=== PATIENT | female | born 2000 | race African-American/Black ===

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

== ENCOUNTER 2018-03-19 09:53 | Emergency (ER) | payer OTHER ==
[~2018-03-19] VITALS: Ht 167.6 cm; Wt 116.1 kg
[~2018-03-19 09:53] MED LIST: ALBU2.5V14 NEB; AZIT250T6 PO; DIPH-121 PO; GUAI-108 PO; HYDR453.3 TP; IBUP-1007 PO; NITR100C62 PO
[2018-03-19 10:08] VITALS: BP 133/75
[2018-03-19 10:56] LABS: INFLUENZA A PATIENT NEGATIVE (NEGATIVE); INFLUENZA B PATIENT NEGATIVE (NEGATIVE)
--- NOTE | 2018-03-19 10:57 | RAD ---
CHEST PA LATERAL CLINICAL INDICATION: COUGH, SORE THROAT COMPARISON: None FINDINGS: Heart is normal in size. Mild prominence of bilateral bronchovascular markings seen. No focal consolidation. No pneumothorax or pleural effusion. Visualized bony thorax within normal limits. IMPRESSION: Findings suggests bronchitis. Electronically signed by: Delfino Ospina DO (03/19/2018 10:53 AM) [facility]
[2018-03-19] MEDS ORDERED: BENZ100C PO (11:28)
[2018-03-19] MEDS ORDERED: VENTOLIN HFA18 GM INH (11:28)
[2018-03-19] MEDS ORDERED: AMOX875T PO (11:28)
[2018-03-19] MEDS ORDERED: PRED50TA PO (11:28)
--- NOTE | 2018-03-19 11:28 | PHYS DOC ---
Past Medical History Past Medical History: Asthma, Other Additional Past Medical Histor: Borderline diabetes Past Surgical History: No Surgical History Alcohol Use: None Drug Use: None Adult General Chief Complaint Chief Complaint: SORE THROAT HPI HPI Patient is a 18 year old female with history of asthma who presents today with a cough and sore throat for 3 days. Patient denies any fever. Review of Systems Review of Systems Constitutional: Denies fever or chills [] Eyes: Denies change in visual acuity, redness, or eye pain [] HENT: Reports sore throat. Denies nasal congestion Respiratory: Reports cough, denies shortness of breath [] Cardiovascular: No additional information not addressed in HPI [] GI: Denies abdominal pain, nausea, vomiting, bloody stools or diarrhea [] : Denies dysuria or hematuria [] Musculoskeletal: Denies back pain or joint pain [] Integument: Denies rash or skin lesions [] Neurologic: Denies headache, focal weakness or sensory changes [] All other systems were reviewed and found to be within normal limits, except as documented in this note. Allergies Allergies Allergies Coded Allergies Type Severity Reaction Last Updated Verified No Known Drug Allergies 08/11/17 No Physical Exam Physical Exam Constitutional: Well developed, well nourished, no acute distress, non-toxic appearance. [] HENT: Normocephalic, atraumatic, bilateral external ears normal, oropharynx moist, no oral exudates, nose normal. [ posterior pharynx with mild erythema. +2 anterior cervical adenopathy. Eyes: PERRLA, EOMI, conjunctiva normal, no discharge. [] Neck: Normal range of motion, no tenderness, supple, no stridor. [] Cardiovascular:Heart rate regular rhythm, no murmur [] Lungs & Thorax: Bilateral breath sounds clear to auscultation [] Abdomen: Bowel sounds normal, soft, no tenderness, no masses, no pulsatile masses. [] Skin: Warm, dry, no erythema, no rash. [] Back: No tenderness, no CVA tenderness. [] Extremities: No tenderness, no cyanosis, no clubbing, ROM intact, no edema. [] Neurologic: Alert and oriented X 3, normal motor function, normal sensory function, no focal deficits noted. [] Psychologic: Affect normal, judgement normal, mood normal. [] Current Patient Data Vital Signs Vital Signs Date Time Temp Pulse Resp B/P (MAP) Pulse Ox O2 Delivery O2 Flow Rate FiO2 03/19/18 10:08 98.0 76 16 133/75 (94) 97 Room Air 98.0 Lab Values Laboratory Tests Test 03/19/18 10:20 03/19/18 10:35 Influenza Type A Antigen Negative (NEGATIVE) Influenza Type B Antigen Negative (NEGATIVE) Group A Streptococcus Rapid Positive (NEGATIVE) EKG EKG [] Radiology/Procedures Radiology/Procedures []PROCEDURE: CHEST PA & LATERAL CHEST PA LATERAL CLINICAL INDICATION: COUGH, SORE THROAT COMPARISON: None FINDINGS: Heart is normal in size. Mild prominence of bilateral bronchovascular markings seen. No focal consolidation. No pneumothorax or pleural effusion. Visualized bony thorax within normal limits. IMPRESSION: Findings suggests bronchitis. Electronically signed by: Delfino Harry DO (03/19/2018 10:53 AM) [facility] DICTATED and SIGNED BY: DELFINO HARRY DO DATE: 03/19/18 1052 Course & Med Decision Making Course & Med Decision Making Pertinent Labs and Imaging studies reviewed. (See chart for details) This is a 18-year-old female patient presented to the ED today with complaints of sore throat and a cough for 3 days. Chest x-ray was noted for bronchitis. Positive rapid strep. Discharged with amoxicillin for 10 days, albuterol inhaler , Tessalon Perles and prednisone for 5 days. Saltwater gargles recommended. Tylenol Motrin for pain or fever. Staff Physician Addendum: I was working in the ER during the course of this patient's visit. I was available for consultation as needed, but I was not directly involved in the care of this patient. Dragon Disclaimer Dragon Disclaimer This electronic medical record was generated, in whole or in part, using a voice recognition dictation system. Departure Departure Impression: Primary Impression: Acute bronchitis Additional Impression: Acute streptococcal pharyngitis Disposition: HOME, SELF-CARE Condition: STABLE Referrals: UNKNOWN PCP NAME (PCP) Follow-up with your doctor in 1-2 weeks Patient Instructions: Acute Bronchitis, Strep Throat Additional Instructions: You were evaluated in the emergency room and noted to have acute bronchitis and streptococcal pharyngitis. We put you on antibiotics. Take them as prescribed until completed. Take the rest of the medications as ordered. Come back to the ED at any point symptoms worsen. Scripts Albuterol Sulfate (VENTOLIN HFA INHALER) 18 Gm Hfa.aer.ad 2 PUFF INH Q4HRS for FOR ASTHMA, #1 INHALER 0 Refills Prov: NIDIA PIZANO APRN 03/19/18 Amoxicillin (AMOXICILLIN) 875 Mg Tablet 1 TAB PO BID, #20 TAB Prov: NIDIA PIZANO APRN 03/19/18 Benzonatate (TESSALON PERLE) 100 Mg Capsule 1 CAP PO TID, #30 CAP Prov: NIDIA PIZANO APRN 03/19/18 Prednisone (PREDNISONE) 50 Mg Tablet 1 TAB PO DAILY, #5 TAB Prov: NIDIA PIZANO APRN 03/19/18 Problem Qualifiers Primary Impression: Acute bronchitis Bronchitis organism: unspecified organism Qualified Codes: J20.9 - Acute bronchitis, unspecified NIDIA PIZANO APRN Mar 19, 2018 11:28 CALEB FORBES MD Mar 19, 2018 11:43
== END 2018-03-19 11:42 | disposition home or self-care (01) ==
LOC: ER 09:53
DX: J20.9 Acute bronchitis, unspecified (principal); J02.0 Streptococcal pharyngitis; J45.909 Unspecified asthma, uncomplicated
CPT/HCPCS: 71046; 87804; 87880; 99284

== ENCOUNTER → 2019-10-03 | Outpatient (CLI) | payer OTHER ==
[~2019-10-03] MED LIST changes: +ALBU2.5V8 IH; +AMOX875T PO; +BENZ100C PO; +PRED20TA PO; +PRED50TA PO; +VENTOLIN HFA18 GM INH
[2019-10-03 12:04] LABS: ALBUMIN 3.3 g/dL (3.4-5.0); ALBUMIN/GLOBULIN RATIO 0.8 (1.0-1.7); CALCIUM 8.9 mg/dL (8.5-10.1); CREATININE 0.9 mg/dL (0.6-1.0); GFR 95.6; POTASSIUM 3.8 mmol/L (3.5-5.1); TOTAL BILIRUBIN 0.4 mg/dL (0.2-1.0); TOTAL PROTEIN 7.6 g/dL (6.4-8.2)
[2019-10-03 12:06] LABS: CHOLESTEROL/HDL RATIO 4.6
[2019-10-03 23:09] LABS: FSH 5.4 mIU/mL (.); LUTEINIZING HORMONE 8.5 mIU/mL (.); THYROXINE 7.7 ug/dL (4.5-12.0)
== END | disposition home or self-care (01) ==
LOC: LAB 11:24
PROVIDERS: ATTEND Family Medicine
DX: N83.209 Unspecified ovarian cyst, unspecified side (principal); N91.2 Amenorrhea, unspecified
CPT/HCPCS: 36415; 80053; 80061; 83001; 83002; 83036; 84436; 84443

== ENCOUNTER 2019-11-15 16:02 | Emergency (ER) | payer SELFPAY ==
[~2019-11-15] VITALS: Ht 167.6 cm; Wt 130.6 kg
[~2019-11-15 16:02] MED LIST changes: -ALBU2.5V8 IH; -PRED20TA PO
[2019-11-15 17:20] VITALS: BP 147/90
[2019-11-15] MEDS ORDERED: PRED20TA PO (17:31)
[2019-11-15] MEDS ORDERED: ALBU2.5V8 IH (17:31)
--- NOTE | 2019-11-15 17:32 | PHYS DOC ---
Past Medical History Past Medical History: Asthma, Other Additional Past Medical Histor: Borderline diabetes Past Surgical History: No Surgical History Smoking Status: Never Smoker Alcohol Use: None Drug Use: None General Adult EDM: Chief Complaint: ASTHMA HPI: HPI: Patient is a 19 year old female presents with a chief complaint of cough congestion and wheezing. Patient has a history of asthma and symptoms feel similar to her asthma. Patient has some mild pleuritic pain associated with this. Patient denies any fever or known COVID-19 contacts. Patient states her inhaler is not working. Review of Systems: Review of Systems: Constitutional: Denies fever or chills. [] Eyes: Denies change in visual acuity. [] HENT: Complains of some congestion Respiratory: Complains of cough and mild shortness of breath Cardiovascular: Complains of mild chest pain with coughing GI: Denies abdominal pain, nausea, vomiting, bloody stools or diarrhea. [] : Denies dysuria. [] Musculoskeletal: Denies back pain or joint pain. [] Integument: Denies rash. [] Neurologic: Denies headache, focal weakness or sensory changes. [] Endocrine: Denies polyuria or polydipsia. [] Lymphatic: Denies swollen glands. [] Psychiatric: Denies depression or anxiety. [] Heart Score: Risk Factors: Risk Factors: DM, Current or recent (<one month) smoker, HTN, HLP, family history of CAD, obesity. Risk Scores: Score 0 - 3: 2.5% MACE over next 6 weeks - Discharge Home Score 4 - 6: 20.3% MACE over next 6 weeks - Admit for Clinical Observation Score 7 - 10: 72.7% MACE over next 6 weeks - Early Invasive Strategies Allergies: Allergies: Allergies Coded Allergies Type Severity Reaction Last Updated Verified No Known Drug Allergies 08/11/17 No Physical Exam: PE: Constitutional: Well developed, well nourished, no acute distress, non-toxic appearance. [] HENT: Normocephalic, atraumatic, bilateral external ears normal, no trismus, nose normal. [] Eyes: PERRLA, EOMI, conjunctiva normal, no discharge. [] Neck: Normal range of motion, no tenderness, supple, no stridor. [] Cardiovascular:Heart rate regular rhythm, peripheral pulses intact, cap refill brisk Lungs & Thorax: Mild expiratory wheeze Abdomen: Nontender nondistended Skin: Warm, dry, no erythema, no rash. [] Back: No tenderness, no CVA tenderness. [] Extremities: No tenderness, no cyanosis, no clubbing, ROM intact, no edema. [] Neurologic: Alert and oriented X 3, normal motor function, normal sensory function, no focal deficits noted. [] Psychologic: Affect normal, judgement normal, mood normal. [] Current Patient Data: Vital Signs: Vital Signs Date Time Temp Pulse Resp B/P (MAP) Pulse Ox O2 Delivery O2 Flow Rate FiO2 11/15/19 17:09 98.0 72 20 147/90 (109) 98 Room Air 98.0 EKG: EKG: [] Radiology/Procedures: Radiology/Procedures: [] Course & Med Decision Making: Course & Med Decision Making Pertinent Labs and Imaging studies reviewed. (See chart for details) [] 19-year-old history of asthma has a mild asthma exacerbation. Patient no respiratory distress. Patient has no known COVID-19 contacts and no fever.. Patient was treated with steroids and prescription for inhaler. Return precautions given. [employer] Disclaimer: [employer] Disclaimer: This electronic medical record was generated, in whole or in part, using a voice recognition dictation system. Departure Departure Impression: Primary Impression: Acute asthma exacerbation Disposition: 01 HOME, SELF-CARE Condition: STABLE Referrals: AWILDA COSTELLO MD (PCP) 2-3 days Patient Instructions: Asthma, Adult Additional Instructions: EMERGENCY DEPARTMENT GENERAL DISCHARGE INSTRUCTIONS THANK YOU for coming to [facility] Emergency Department (ED) today and trusting us with your care. We trust that you had a positive experience in our Emergency Department. If you wish to speak to the department Management you can contact the produce department supervisor at . YOUR FOLLOW UP INSTRUCTIONS ARE FOLLOWS: Do you have a private doctor? If you do not have a private doctor, please ask for a resource list of physicians or clinics that may be able to assist you with follow up care. The Emergency Physician has interpreted your x-rays. The X-ray specialist will also review them. If there is a change in the findings you will be notified in 48 hours when at all possible. A lab test or lab culture may have been done, your results will be reviewed and you will be notified if you need a change in treatment. ADDITIONAL INSTRUCTIONS AND INFORMATION Your care today has been supervised by a physician who is specially trained in emergency care. Many problems require more than one evaluation for a complete diagnosis and treatment. We recommend that you schedule your follow up appointment as recommended to ensure complete treatment of your illness or injury. If you are unable to obtain follow up care and continue to have a problem, or if your condition worsens we recommend that you return to the ED. We are not able to safely determine your condition over the phone nor are we able to give sound medical advice over the phone. For these safety reasons, if you call for medical advice we will ask you to come to the ED for further evaluation If you have any questions regarding these discharge instructions please call the ED at . SAFETY INFORMATION In the interest of safety, wellness, and injury prevention; we encourage you to wear your seatbelt, if you smoke; quit smoking, and we encourage your family to use protective helmet for bicycling and other sporting events that present an increased risk for head injury. IF YOUR SYMPTOMS WORSEN OR NEW SYMPTOMS DEVELOP, OR YOU HAVE CONCERNS ABOUT YOUR CONDITION; OR IF YOUR CONDITION WORSENS WHILE YOU ARE WAITING FOR YOUR FOLLOW UP APPOINTMENT; EITHER CONTACT YOUR PRIMARY CARE DOCTOR, THE PHYSICIAN WHOSE NAME AND NUMBER YOU WERE GIVEN, OR RETURN TO THE ED IMMEDIATELY. Scripts Prednisone (PREDNISONE) 20 Mg Tablet 3 TAB PO DAILY, #15 TAB Prov: DENISHA TRIPATHI MD 11/15/19 Albuterol Sulfate (PROAIR HFA INHALER) 8.5 Gm Hfa.aer.ad 2 PUFF IH PRN Q4-6HRS PRN for wheezing, #1 INHALER 0 Refills Prov: DENISHA TRIPATHI MD 11/15/19 Justicifation of Admission Dx: Justifications for Admission: Justification of Admission Dx: N/A DENISHA TRIPATHI MD Nov 15, 2019 17:32
== END 2019-11-15 17:41 | disposition home or self-care (01) ==
LOC: ER 16:02
DX: J45.901 Unspecified asthma with (acute) exacerbation (principal)
CPT/HCPCS: 99283

== ENCOUNTER 2020-03-12 12:44 | Emergency (ER) | payer SELFPAY ==
[~2020-03-12] VITALS: Ht 167.6 cm; Wt 120.4 kg
[~2020-03-12 12:44] MED LIST changes: +ALBU2.5V8 IH; +ALBU2.5V8 INH; +METH4TAB2 PO; +PRED20TA PO
[2020-03-12 13:24] VITALS: BP 141/88
[2020-03-12] MEDS ORDERED: PRED20TA PO (13:45)
[2020-03-12] MEDS ORDERED: DEXAMETHASONE 4 MG TABLET PO ONE (13:45)
--- NOTE | 2020-03-12 13:45 | PHYS DOC ---
Past Medical History Past Medical History: Asthma Additional Past Medical Histor: Borderline diabetes Past Surgical History: No Surgical History Smoking Status: Never Smoker Alcohol Use: Occasionally Drug Use: None General Adult EDM: Chief Complaint: ALLERGIC REACTION HPI: HPI: Patient is a 20 year old female presents with report of pruritic rash to lower back and bilateral legs that started at 1100. 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 Patient reports she thought she was using artificial kiwi flavoring which she tasted. Patient does report allergy to kiwi. Patient reports some initial shortness of breath which is since resolved. Reports itching and shortness of breath improved after taking 25 mg of Benadryl. Patient reports she presents to the ER for evaluation given some continued rash and itching and concern for worsening of symptoms. Review of Systems: Review of Systems: Constitutional: Denies fever or chills Eyes: Denies redness or eye pain HENT: Denies nasal congestion or sore throat Respiratory: Denies cough; reports shortness of breath Cardiovascular: Denies chest pain or palpitations GI: Denies abdominal pain, nausea, or vomiting : Denies dysuria or hematuria Musculoskeletal: Denies back pain or joint pain Integument: Reports pruritic rash; denies erythema Neurologic: Denies headache, focal weakness or sensory changes Complete systems were reviewed and found to be within normal limits, except as documented in this note. Allergies: Allergies: Allergies Coded Allergies Type Severity Reaction Last Updated Verified No Known Drug Allergies 08/11/17 No Physical Exam: PE: Constitutional: Well developed, well nourished, no acute distress, non-toxic appearance HENT: Normocephalic, atraumatic, no stridor Eyes: Conjunctiva normal, no discharge Neck: Normal range of motion, no tenderness, supple Lungs & Thorax: No respiratory distress, equal chest rise and fall Skin: Warm, dry, pruritic raised rash to lumbar back consistent for urticaria Back: No midline tenderness, no CVA tenderness Extremities: No tenderness, ROM intact, no edema Neurologic: Alert and oriented X 3, no focal deficits noted Psychologic: Affect normal, judgment normal Current Patient Data: Vital Signs: Vital Signs Date Time Temp Pulse Resp B/P (MAP) Pulse Ox O2 Delivery O2 Flow Rate FiO2 03/12/20 13:24 98.6 84 18 141/88 (105) 97 Room Air 98.6 EKG: EKG: [] Radiology/Procedures: Radiology/Procedures: [] Course & Med Decision Making: Course & Med Decision Making Patient presents with pruritic rash which appears consistent for urticaria. Patient reports possible ingestion of kiwi for which patient has known allergy. No airway compromise noted. Patient previously had taken 25 mg of Benadryl prior to arrival with interval improvement of some of her symptoms. Oral steroid therefore provided. Patient stable for discharge with outpatient follow-up with PCP. Discussed findings and plan with patient, who acknowledges understanding and agreement. Dragon Disclaimer: Dragon Disclaimer: This electronic medical record was generated, in whole or in part, using a voice recognition dictation system. Departure Departure Impression: Primary Impression: Urticaria Additional Impression: Food allergy Disposition: 01 DC HOME SELF CARE/HOMELESS Condition: STABLE Referrals: AWILDA COSTELLO MD (PCP) Patient Instructions: Food Allergy, [id number], Hives, [id number] Additional Instructions: Take over the counter Benadryl 25mg every 4-6 hours as needed for hives. Scripts Prednisone (PREDNISONE) 20 Mg Tablet 2 TAB PO DAILY, #8 TAB Start this prescription tomorrow, 03/13/20 Prov: ISRAEL BLANCAS DO 03/12/20 ISRAEL BLANCAS DO Mar 12, 2020 13:45
== END 2020-03-12 14:27 | disposition home or self-care (01) ==
LOC: ER 12:44
DX: L50.0 Allergic urticaria (principal); J45.909 Unspecified asthma, uncomplicated; Z91.018 Allergy to other foods
CPT/HCPCS: 99283

== ENCOUNTER 2020-08-05 21:19 | Emergency (ER) | payer SELFPAY ==
[~2020-08-05] VITALS: Ht 167.6 cm; Wt 110.0 kg
[2020-08-05] MEDS ORDERED: methylPREDNISolone SOD SUCC PF 125 MG/2 ML VIAL. IV ONE (21:45)
[2020-08-05] MEDS ORDERED: IV NORMAL SALINE 1000ML BAG 1,000 ML IV ONE ×2 (21:45→23:45)
[2020-08-05] MEDS ORDERED: IPRATRPIUM/ALBUTEROL 0.5/2.5MG 3 ML NEBU. NEB ONE ×2 (21:45)
--- NOTE | 2020-08-05 21:45 | ED.ADGEN ---
Past Medical History Past Medical History: Asthma Additional Past Medical Histor: Borderline diabetes Past Surgical History: No Surgical History Smoking Status: Never Smoker Alcohol Use: Occasionally Drug Use: None General Adult EDM: Chief Complaint: MULTIPLE COMPLAINTS HPI: HPI: Patient is a 20 year old female with productive cough, shortness of breath, rhinorrhea and congestion, low-grade fevers since yesterday. States her symptoms are worse today. States her asthma use her DuoNeb yesterday but is still feels like she is wheezing. Took Tylenol and Mucinex earlier today. No known sick contacts. Is not had her Covid vaccines yet. Denies any GI complaints. Review of Systems: Review of Systems: All other systems within normal limits except for as noted in the HPI Current Medications: Current Medications Medications (Trade) Dose Ordered Sig/Alberto Start Time Stop Time Status Last Admin Dose Admin Albuterol/ Ipratropium (Duoneb) 3 ml 1X ONCE 08/05/20 21:45 08/05/20 21:46 DC 08/05/20 22:40 3 ML Ceftriaxone Sodium (Rocephin) 1 gm 1X ONCE 08/06/20 00:45 08/06/20 00:50 DC 08/06/20 01:12 1 GM Info (CONTRAST GIVEN -- Rx MONITORING) 1 each PRN DAILY PRN 08/06/20 00:30 08/08/20 00:29 Iohexol (Omnipaque 350 Mg/ml) 100 ml 1X ONCE 08/06/20 00:30 08/06/20 00:31 DC 08/06/20 00:36 100 ML Methylprednisolone Sodium Succinate (SOLU-Medrol 125MG VIAL) 125 mg 1X ONCE 08/05/20 21:45 08/05/20 21:46 DC 08/05/20 22:16 125 MG Sodium Chloride 1,000 ml @ 1,000 mls/hr 1X ONCE 08/05/20 23:45 08/06/20 00:44 DC 08/06/20 00:33 1,000 MLS/HR Allergies: Allergies: Allergies Coded Allergies Type Severity Reaction Last Updated Verified No Known Drug Allergies 08/11/17 No Physical Exam: PE: Constitutional: Well developed, well nourished, no acute distress, non-toxic appearance. [] HENT: Normocephalic, atraumatic, bilateral external ears normal, nose normal. [] Eyes: PERRLA, conjunctiva normal, no discharge. [] Neck: No rigidity, supple, no stridor. [] Cardiovascular: Regular rate and rhythm, brisk cap refill [] Lungs & Thorax: Non labored symmetric respirations, no tachypnea or respiratory distress. Bilateral expiratory wheezes. [] Abdomen: Soft, nondistended. Skin: Warm, dry, no erythema, no rash. [] Back: Unremarkable Extremities: No deformities, range of motion grossly intact, no lower extremity edema [] Neurologic: Alert and oriented X 3, no focal deficits noted. [] Psychologic: Affect normal, judgement normal, mood normal. [] Current Patient Data: Labs: Laboratory Tests Test 08/05/20 22:00 08/05/20 23:05 08/05/20 23:45 08/05/20 23:50 White Blood Count 11.9 x10^3/uL (4.0-11.0) H Red Blood Count 4.40 x10^6/uL (3.50-5.40) Hemoglobin 13.5 g/dL (12.0-15.5) Hematocrit 39.9 % (36.0-47.0) Mean Corpuscular Volume 91 fL (79-100) Mean Corpuscular Hemoglobin 31 pg (25-35) Mean Corpuscular Hemoglobin Concent 34 g/dL (31-37) Red Cell Distribution Width 12.8 % (11.5-14.5) Platelet Count 278 x10^3/uL (140-400) Neutrophils (%) (Auto) 70 % (31-73) Lymphocytes (%) (Auto) 18 % (24-48) L Monocytes (%) (Auto) 7 % (0-9) Eosinophils (%) (Auto) 5 % (0-3) H Basophils (%) (Auto) 0 % (0-3) Neutrophils # (Auto) 8.4 x10^3/uL (1.8-7.7) H Lymphocytes # (Auto) 2.2 x10^3/uL (1.0-4.8) Monocytes # (Auto) 0.8 x10^3/uL (0.0-1.1) Eosinophils # (Auto) 0.5 x10^3/uL (0.0-0.7) Basophils # (Auto) 0.0 x10^3/uL (0.0-0.2) Sodium Level 139 mmol/L (136-145) Potassium Level 3.9 mmol/L (3.5-5.1) Chloride Level 104 mmol/L (98-107) Carbon Dioxide Level 24 mmol/L (21-32) Anion Gap 11 (6-14) Blood Urea Nitrogen 11 mg/dL (7-20) Creatinine 1.0 mg/dL (0.6-1.0) Estimated GFR (Cockcroft-Gault) 83.9 BUN/Creatinine Ratio 11 (6-20) Glucose Level 98 mg/dL (70-99) Calcium Level 8.9 mg/dL (8.5-10.1) Total Bilirubin 0.3 mg/dL (0.2-1.0) Aspartate Amino Transferase (AST) 18 U/L (15-37) Alanine Aminotransferase (ALT) 27 U/L (14-59) Alkaline Phosphatase 104 U/L (46-116) Troponin I Quantitative < 0.017 ng/mL (0.000-0.055) QT-Zpy-C-Type Natriuretic Peptide 18 pg/mL (0-124) Total Protein 7.2 g/dL (6.4-8.2) Albumin 3.2 g/dL (3.4-5.0) L Albumin/Globulin Ratio 0.8 (1.0-1.7) L D-Dimer (Rochelle) 0.48 ug/mlFEU (0.00-0.50) Urine Collection Type Unknown Urine Color Yellow Urine Clarity Clear Urine pH 7.5 (<5.0-8.0) Urine Specific [place] 1.025 (1.000-1.030) Urine Protein Negative mg/dL (NEG-TRACE) Urine Glucose (UA) Negative mg/dL (NEG) Urine Ketones (Stick) Negative mg/dL (NEG) Urine Blood Negative (NEG) Urine Nitrite Negative (NEG) Urine Bilirubin Negative (NEG) Urine Urobilinogen Dipstick 1.0 mg/dL (0.2 mg/dL) Urine Leukocyte Esterase Large (NEG) Urine RBC Occ /HPF (0-2) Urine WBC 20-40 /HPF (0-4) Urine Squamous Epithelial Cells Few /LPF Urine Bacteria Few /HPF (0-FEW) Urine Mucus Slight /LPF POC Urine HCG, Qualitative Hcg negative (Negative) Laboratory Tests 08/05/20 22:00 Laboratory Tests 08/05/20 22:00 Vital Signs: Vital Signs Date Time Temp Pulse Resp B/P (MAP) Pulse Ox O2 Delivery O2 Flow Rate FiO2 08/06/20 01:12 99 20 168/72 (104) 98 08/05/20 22:48 Aerosol Mask 10.0 08/05/20 21:56 99.5 99.5 EKG: EKG: Sinus tachycardia, heart rate 104 bpm, left axis deviation, no ST elevation or depression, no ectopy. [] Heart Score: C/O Chest Pain: No Risk Factors: Risk Factors: DM, Current or recent (<one month) smoker, HTN, HLP, family history of CAD, obesity. Risk Scores: Score 0 - 3: 2.5% MACE over next 6 weeks - Discharge Home Score 4 - 6: 20.3% MACE over next 6 weeks - Admit for Clinical Observation Score 7 - 10: 72.7% MACE over next 6 weeks - Early Invasive Strategies Radiology/Procedures: Radiology/Procedures: EXAM: CT chest with contrast - pulmonary embolus protocol CLINICAL HISTORY: Dyspnea COMPARISON: None. TECHNIQUE: CT of the chest following the administration of intravenous contrast during the pulmonary arterial phase. Axial, coronal and sagittal reformatted images were generated including MIP images. ---PQRS compliance statement - One or more of the following individualized dose reduction techniques were utilized for this study: 1. Automated exposure control 2. Adjustment of the mA and/or kV according to patient size 3. Use of iterative reconstruction technique--- FINDINGS: CHEST: Diagnostic quality: Suboptimal contrast bolus Pulmonary emboli: No pulmonary emboli to the level of the lobar branches. More peripheral vessels are not well assessed. Right heart strain: None Pulmonary arteries: Normal in caliber. Heart is not enlarged. No pericardial effusion. No pleural effusion or pneumothorax. No axillary lymphadenopathy. No mediastinal or hilar lymphadenopathy. Anterior mediastinal soft tissue density likely residual thymus. No suspicious lung nodule or mass is seen. No lobar consolidation. Visualized Upper abdomen: Trace hiatal hernia. Bones: Unremarkable IMPRESSION: Suboptimal contrast bolus. No pulmonary emboli to the level of the lobar branches. More peripheral vessels are not well assessed. [] Impression: Not mentioned in radiology report but I visualized small of infiltrate in right lung base. Course & Med Decision Making: Course & Med Decision Making Pertinent Labs and Imaging studies reviewed. (See chart for details) [] Dragon Disclaimer: Dragon Disclaimer: This electronic medical record was generated, in whole or in part, using a voice recognition dictation system. Departure Departure Impression: Primary Impression: Person under investigation for COVID-19 Additional Impressions: UTI (urinary tract infection) CAP (community acquired pneumonia) Disposition: 01 HOME / SELF CARE / HOMELESS Condition: STABLE Referrals: AWILDA COSTELLO MD (PCP) Patient Instructions: Pneumonia, Adult Additional Instructions: You have been tested for or diagnosed with COVID-19. It is an infection caused by a new type of coronavirus. COVID-19 will cause cold-like or mild flu symptoms in most. It can cause more severe symptoms like problems breathing in some. There is no treatment for COVID-19. The body will clear the infection over time. Self-care will help to ease discomfort. Steps to Take: Self-Care Rest as needed. Healthy habits may help you feel better. Steps include: Choose healthy foods including fruits and vegetables. Drink water throughout the day. Get plenty of sleep each night. If you smoke, try to quit. It may ease breathing. Avoid alcohol. Keep Others Healthy The virus can spread to others. Droplets are released every time you sneeze or cough. The droplets can get into the mouth, nose, or eyes of people near you and lead to infection. To lower the chances of spreading COVID-19 to others: Stay at home until your doctor has said it is safe to leave. If you tested positive this will mean staying isolated until both of the following are true: At least 7 days have passed since the start of illness. You are free of fever for at least 72 hours without the use of medicine. During this time: - Avoid public areas, events, or transportation. Do not return to work or school until your doctor has said it is safe to do so. - Call ahead if you need to go to a medical center. Let them know you may have COVID-19. It will help them guide you where to go. They may also ask you to wear a facemask when you come to the office. - If you call for emergency medical services, let them know you may have COVID- 19. While at home: - Try to avoid close contact with others. Stay about 6 feet away. - If possible, spend most of your time in a separate room from others. - Use a face mask if you will be in close contact with others such as sharing a room or vehicle. - Have someone wipe down common surfaces in the home. Use household personal computer network engineer every day on areas like doorknobs, counters, or sinks. - Cough or sneeze into a tissue. Throw the tissue away right after use. If a tissue is not available, cough or sneeze into your elbow. - Wash your hands often. Wash them after sneezing or coughing. Use soap and water and wash for at least 20 seconds. Alcohol based hand block cleaner can be used if soap and water is not available. - Do not prepare food for others. Avoid sharing personal items like forks, spoons, or toothbrushes. - Avoid close contact with pets while you are sick. There is no evidence of the virus passing to pets. This is a safety step until more is known about this virus. Isolation can be frustrating. Social interaction can help. Keep in touch with friends and family through phone and tech options. You can still interact with others in your home, just keep a safe distance of about 6 feet. Follow-up: Your doctors office will check in with you to see if there are any changes in your health. You may be asked to keep track of symptoms to share with them. They will also let you know when you are clear to be in public again. Problems to Look Out For: Contact your doctor if your recovery is not going as you expect. Get emergency care if you have problems such as: - Trouble breathing - Nonstop chest pain or pressure - Changes in awareness, confusion, or problems waking - Lips or face have bluish color - Worsening of symptoms If you think you have an emergency, call for emergency medical services right away. As taken from [facility] Amoxicillin/Potassium Clav (AUGMENTIN 875-125 TABLET) 1 Each Tablet 1 TAB PO Q12HR for antibiotic for 5 Days, #10 TAB Prov: MARY ZENDEJAS MD 08/06/20 Prednisone (PREDNISONE) 50 Mg Tablet 1 TAB PO DAILY for steroid for 5 Days, #5 TAB Prov: MARY ZENDEJAS MD 08/06/20 Ipratropium/Albuterol Sulfate (DUONEB 0.5-3(2.5) MG/3 ML) 3 Ml Ampul.neb 3 ML NEB QID PRN for WHEEZING for 10 Days, #40 EACH Prov: MARY ZENDEJAS MD 08/06/20 Problem Qualifiers MARY ZENDEJAS MD Aug 05, 2020 21:45
[2020-08-05 22:36] LABS: BASO % 0 % (0-3); EOS # 0.5 x10^3/uL (0.0-0.7); EOS % 5 % (0-3); HEMATOCRIT 39.9 % (36.0-47.0); HEMOGLOBIN 13.5 g/dL (12.0-15.5); LYMPH # 2.2 x10^3/uL (1.0-4.8); LYMPH % 18 % (24-48); MEAN CORPUSCULAR HEMOGLOBIN 31 pg (25-35); MEAN CORPUSCULAR HGB CONC 34 g/dL (31-37); MEAN CORPUSCULAR VOLUME 91 fL (79-100); MONO # 0.8 x10^3/uL (0.0-1.1); MONO % 7 % (0-9); NEUT # 8.4 x10^3/uL (1.8-7.7); NEUT % 70 % (31-73); PLATELET COUNT 278 x10^3/uL (140-400); RED CELL DISTRIBUTION WIDTH 12.8 % (11.5-14.5); WHITE BLOOD COUNT 11.9 x10^3/uL (4.0-11.0)
[2020-08-05 22:51] LABS: CALCIUM 8.9 mg/dL (8.5-10.1); GFR 83.9; POTASSIUM 3.9 mmol/L (3.5-5.1)
[2020-08-05 22:57] LABS: ALBUMIN 3.2 g/dL (3.4-5.0); ALBUMIN/GLOBULIN RATIO 0.8 (1.0-1.7); TOTAL BILIRUBIN 0.3 mg/dL (0.2-1.0); TOTAL PROTEIN 7.2 g/dL (6.4-8.2)
--- NOTE | 2020-08-05 23:09 | EKG ---
[facility] [address] [place] [address] Test Date: 2020-08-05 Test Time: 21:52:28 Pat Name: ILANA BERRIOS Department: Room: Gender: F Vehicle Sales Professional: : 2000 Requested By: MARY ZENDEJAS Order Number: [id number] Reading MD: Measurements Intervals [place] Rate: 104 P: 26 [place]: 134 QRS: -7 QRSD: 76 T: 16 QT: 338 QTc: 445 Interpretive Statements SINUS TACHYCARDIA LEFTWARD AXIS QRS(T) CONTOUR ABNORMALITY CONSISTENT WITH ANTERIOR MYOCARDIAL DAMAGE CONSISTENT WITH INFERIOR MYOCARDIAL DAMAGE ABNORMAL ECG RI6.01 No previous ECG available for comparison
[2020-08-05 23:56] LABS: BILIRUBIN,URINE NEGATIVE (NEG); CLARITY,URINE CLEAR; COLOR,URINE YELLOW; NITRITE,URINE NEGATIVE (NEG); PH,URINE 7.5 (<5.0-8.0); PROTEIN,URINE NEGATIVE (NEG-TRACE)
[2020-08-06 00:01] LABS: BACTERIA,URINE FEW /HPF (0-FEW); RBC,URINE OCC /HPF (0-2); WBC,URINE 20-40 /HPF (0-4)
[2020-08-06] MEDS ORDERED: CONTRAST GIVEN. MC PRN (00:30)
[2020-08-06] MEDS ORDERED: IOHEXOL 350 MG/ML 100 ML VIAL. IV ONE (00:30)
[2020-08-06] MEDS ORDERED: cefTRIAXone IV Push 1 GM VIAL. IVP ONE (00:45)
[2020-08-06] MEDS ORDERED: AMOX1TAB61 PO (01:02)
[2020-08-06] MEDS ORDERED: IPRA3AMP29 NEB (01:02)
[2020-08-06] MEDS ORDERED: PRED50TA PO (01:02)
--- NOTE | 2020-08-06 01:11 | RAD ---
EXAM: CT chest with contrast - pulmonary embolus protocol CLINICAL HISTORY: Dyspnea COMPARISON: None. TECHNIQUE: CT of the chest following the administration of intravenous contrast during the pulmonary arterial phase. Axial, coronal and sagittal reformatted images were generated including MIP images. ---PQRS compliance statement - One or more of the following individualized dose reduction techniques were utilized for this study: 1. Automated exposure control 2. Adjustment of the mA and/or kV according to patient size 3. Use of iterative reconstruction technique--- FINDINGS: CHEST: Diagnostic quality: Suboptimal contrast bolus Pulmonary emboli: No pulmonary emboli to the level of the lobar branches. More peripheral vessels ar e not well assessed. Right heart strain: None Pulmonary arteries: Normal in caliber. Heart is not enlarged. No pericardial effusion. No pleural effusion or pneumothorax. No axillary lymphadenopathy. No mediastinal or hilar lymphadenopathy. Anterior mediastinal soft tissue density likely residual thymus. No suspicious lung nodule or mass is seen. No lobar consolidation. Visualized Upper abdomen: Trace hiatal hernia. Bones: Unremarkable IMPRESSION: Suboptimal contrast bolus. No pulmonary emboli to the level of the lobar branches. More peripheral ve ssels are not well assessed. Electronically signed by: Zeke Mcclendon MD (08/06/2020 1:09 AM) ROSS
[2020-08-06 01:41] VITALS: BP 154/72
== END 2020-08-06 01:55 | disposition home or self-care (01) ==
LOC: ER 21:19
DX: J18.9 Pneumonia, unspecified organism (principal); Z20.822 Contact with and (suspected) exposure to COVID-19; N39.0 Urinary tract infection, site not specified; J45.909 Unspecified asthma, uncomplicated
CPT/HCPCS: 36415; 71275; 80053; 81001; 81025; 83880; 84484; 85025; 85379; 87086; 93005; 94640; 96361; 96374; 96375; 99285; J0696; J2930; J7030; Q9967; U0003; U0005

== ENCOUNTER 2020-10-25 06:26 | Emergency (ER) | payer SELFPAY ==
[~2020-10-25] VITALS: Ht 167.6 cm; Wt 120.5 kg
[~2020-10-25 06:26] MED LIST changes: +AMOX1TAB61 PO; +IPRA3AMP29 NEB
--- NOTE | 2020-10-25 06:53 | PHYS DOC ---
Past Medical History Past Medical History: Asthma Additional Past Medical Histor: Borderline diabetes Past Surgical History: No Surgical History Smoking Status: Never Smoker Alcohol Use: Occasionally Drug Use: None General Adult EDM: Chief Complaint: MULTIPLE COMPLAINTS HPI: HPI: 20-year-old female past medical history of asthma, borderline diabetes and obesity, presents to the ED with complaints of generalized weakness with multiple episodes of vomiting and diarrhea stating "I vomit everytime I cough and I have cottonmouth, I feel so weak." Tested positive for Covid 10/23, symptoms started 2 days before. Reports asthma is well controlled but needed her inhaler last night. No associated sore throat, chest pain or dyspnea. Works at a [employer]. Review of Systems: Review of Systems: Constitutional: Denies fever or chills. [] Eyes: Denies change in visual acuity. [] HENT: Denies nasal congestion or sore throat. [] Respiratory: Denies hemoptysis or shortness of breath. [] Cardiovascular: Denies chest pain or edema. [] GI: Denies melena or hematochezia : Denies dysuria or vaginal bleeding Musculoskeletal: Denies back pain or joint pain. [] Integument: Denies rash or diaphoresis Neurologic: Denies headache, focal weakness or sensory changes. [] Endocrine: Denies polyuria or polydipsia. [] Lymphatic: Denies swollen glands. [] Psychiatric: Denies depression or anxiety. [] Heart Score: C/O Chest Pain: No Risk Factors: Risk Factors: DM, Current or recent (<one month) smoker, HTN, HLP, family history of CAD, obesity. Risk Scores: Score 0 - 3: 2.5% MACE over next 6 weeks - Discharge Home Score 4 - 6: 20.3% MACE over next 6 weeks - Admit for Clinical Observation Score 7 - 10: 72.7% MACE over next 6 weeks - Early Invasive Strategies Allergies: Allergies: Allergies Coded Allergies Type Severity Reaction Last Updated Verified Penicillins Allergy Unknown 10/25/20 Yes Physical Exam: PE: Constitutional: Well developed, well nourished, no acute distress, non-toxic appearance. HENT: Normocephalic, atraumatic, dry mucous membranes Eyes: EOMI, conjunctiva normal, no discharge. Neck: Normal range of motion, supple, Cardiovascular: S1/2 present, regular rhythm-hr 96 Lungs & Thorax: Speaking in full sentences, bilateral equal chest rise, no tachypnea or increased work of breathing, witnessed dry cough Skin: Warm, dry, no erythema, no rash. [] Extremities: No tenderness, no cyanosis, no lower extremity edema Neurologic: Alert and oriented X 3, normal motor function, normal sensory function, no focal deficits noted. [] Psychologic: Affect normal, judgement normal, mood normal. [] Current Patient Data: Vital Signs: Vital Signs Date Time Temp Pulse Resp B/P (MAP) Pulse Ox O2 Delivery O2 Flow Rate FiO2 10/25/20 06:30 99.6 96 20 121/85 (99) 95 Room Air 99.6 EKG: EKG: [] Radiology/Procedures: Radiology/Procedures: []IMAGING REPORT Signed PATIENT: ILANA BERRIOS ACCOUNT: [id number] : 2000 LOCATION: ER AGE: 20 SEX: F EXAM STATUS: REG ER ORD. PHYSICIAN: PALAK HUBER DO REASON: covid + weakness PROCEDURE: CHEST AP ONLY XR CHEST 1V History: Reason: covid + weakness / Spl. Instructions: / History: Comparison: January 07, 2020 Findings: Mild ill-defined mid and bibasilar opacities. No pleural effusion. No pneumothor ax. Unchanged heart size. Impression: 1. Mild bilateral ill-defined opacities, can be seen with viral pneumonia. Electronically signed by: Moody Rahman DO (10/25/2020 7:33 AM) [id number] DICTATED and SIGNED BY: MOODY RAHMAN DO DATE: 10/25/20 [id number] 0 Course & Med Decision Making: Course & Med Decision Making Pertinent Labs and Imaging studies reviewed. (See chart for details) Concern for weakness, cough, vomiting and diarrhea in the setting of COVID-19 infection with chest x-ray showing viral pneumonia, day 4 symptoms. Pt afebrile, HD stable, requiring no respiratory support. No active vomiting in the ED. Electrolytes within normal limits. CK slightly elevated with normal renal function. Patient was treated with antiemetics, Pepcid and IV fluids in the ED. Will discharge home with Zofran ODT prescription and strict ED return precautions were given for chest pain, short dyspnea, hemoptysis, increased work of breathing or stroke symptoms. Encouraged urgent outpatient follow-up with PMD for routine care. Life-threatening processes were considered but are low suspicion at this time, given history, physical exam and ED workup. Pt was educated on all prescription medications and adverse effects. All patient's questions were answered and pt was stable at time of discharge. Life/limb-threatening differential includes but is not limited to, airway emergency or respiratory distress/ARDS or fatigue or head or neck swelling, toxidrome, sepsis/shock, angioedema, anaphylaxis, congestive heart failure, myocarditis, acute myocardial infarction, dysrhythmias, cardiomyopathy, venous thromboembolism, pulmonary emboli, acute necrotizing hemorrhagic encephalopathy ,cerebral venous thrombosis, meningitis, encephalitis or CVA. I have spoken with the patient and/or caregivers. I explained the patient's condition, diagnoses and treatment plan based on the information available to me at this time. I have answered the patient and/or caregiver's questions and addressed any concerns. The patient and/or caregivers have a good understanding of patient's diagnosis, condition and treatment plan as can be expected at this point. Vital signs have been stable. Patient's condition is stable and appropriate for discharge from the emergency department. Patient will pursue further outpatient evaluation with primary care physician or other designated or consulting physician as outlined in the discharge instructions. The patient and/or caregivers are agreeable to this plan of care and follow-up instructions have been explained in detail. The patient and/or caregivers have received these instructions in written form and have expressed an understanding of the discharge instructions. The patient and/or caregivers are aware that any significant change of condition or worsening of symptoms should prompt immediate return to this or the closest emergency department or call to 911. Donny Disclaimer: Donny Disclaimer: This electronic medical record was generated, in whole or in part, using a voice recognition dictation system. Departure Departure Impression: Primary Impression: COVID-19 Additional Impressions: Viral pneumonia Vomiting and diarrhea Disposition: HOME / SELF CARE / HOMELESS Condition: STABLE Referrals: AWILDA COSTELLO MD (PCP) for routine care within 1 week Patient Instructions: Upper Respiratory Infection, Adult Additional Instructions: Return to ED immediately if your oxygen level drops below 90% (purchase a pulse oximetry at a medical supply store), difficulties breathing including rapid breathing or increased work of breathing (skin sucking under ribs), chest pain or stroke-like symptoms (facial droop, speech changes, arm/leg weakness). You have been tested for or diagnosed with COVID-19. It is an infection caused by a new type of coronavirus. COVID-19 will cause cold-like or mild flu symptoms in most. It can cause more severe symptoms like problems breathing in some. There is no treatment for COVID-19. The body will clear the infection over time. Self-care will help to ease discomfort. Steps to Take: Self-Care Rest as needed. Healthy habits may help you feel better. Steps include: Choose healthy foods including fruits and vegetables. Drink water throughout the day. Get plenty of sleep each night. If you smoke, try to quit. It may ease breathing. Avoid alcohol. Keep Others Healthy The virus can spread to others. Droplets are released every time you sneeze or cough. The droplets can get into the mouth, nose, or eyes of people near you and lead to infection. To lower the chances of spreading COVID-19 to others: Stay at home until your doctor has said it is safe to leave. If you tested positive this will mean staying isolated until both of the following are true: At least 7 days have passed since the start of illness. You are free of fever for at least 72 hours without the use of medicine. During this time: - Avoid public areas, events, or transportation. Do not return to work or school until your doctor has said it is safe to do so. - Call ahead if you need to go to a medical center. Let them know you may have COVID-19. It will help them guide you where to go. They may also ask you to wear a facemask when you come to the office. - If you call for emergency medical services, let them know you may have COVID- 19. While at home: - Try to avoid close contact with others. Stay about 6 feet away. - If possible, spend most of your time in a separate room from others. - Use a face mask if you will be in close contact with others such as sharing a room or vehicle. - Have someone wipe down common surfaces in the home. Use household conveyor man every day on areas like doorknobs, counters, or sinks. - Cough or sneeze into a tissue. Throw the tissue away right after use. If a tissue is not available, cough or sneeze into your elbow. - Wash your hands often. Wash them after sneezing or coughing. Use soap and water and wash for at least 20 seconds. Alcohol based hand kitchen cleaner can be used if soap and water is not available. - Do not prepare food for others. Avoid sharing personal items like forks, spoons, or toothbrushes. - Avoid close contact with pets while you are sick. There is no evidence of the virus passing to pets. This is a safety step until more is known about this virus. Isolation can be frustrating. Social interaction can help. Keep in touch with friends and family through phone and tech options. You can still interact with others in your home, just keep a safe distance of about 6 feet. Follow-up: Your doctors office will check in with you to see if there are any changes in your health. You may be asked to keep track of symptoms to share with them. They will also let you know when you are clear to be in public again. Problems to Look Out For: Contact your doctor if your recovery is not going as you expect. Get emergency care if you have problems such as: - Trouble breathing - Nonstop chest pain or pressure - Changes in awareness, confusion, or problems waking - Lips or face have bluish color - Worsening of symptoms If you think you have an emergency, call for emergency medical services right away. As taken from [facility] Ondansetron (ONDANSETRON ODT) 4 Mg Tab.rapdis 1 TAB PO PRN Q6-8HRS, #20 TAB Prov: PALAK HUBER DO 10/25/20 PALAK HUBER DO Oct 25, 2020 06:53
[2020-10-25] MEDS ORDERED: FAMOTIDINE 20 MG/2 ML VIAL IVP ONE (07:00)
[2020-10-25] MEDS ORDERED: METOCLOPRAMIDE HCL 10 MG/2 ML VIAL. IVP ONE (07:00)
[2020-10-25] MEDS ORDERED: KETOROLAC 15 MG/ML VIAL. IVP ONE (07:00)
[2020-10-25] MEDS ORDERED: IV NORMAL SALINE 1000ML BAG 1,000 ML IV ONE (07:00)
--- NOTE | 2020-10-25 07:35 | RAD ---
XR CHEST 1V History: Reason: covid + weakness / Spl. Instructions: / History: Comparison: January 07, 2020 Findings: Mild ill-defined mid and bibasilar opacities. No pleural effusion. No pneumothorax. Unchanged heart s ize. Impression: 1. Mild bilateral ill-defined opacities, can be seen with viral pneumonia. Electronically signed by: Moody Rahman DO (10/25/2020 7:33 AM) [id number]
[2020-10-25 07:57] LABS: BASO % 0 % (0-3); EOS % 1 % (0-3); HEMATOCRIT 40.6 % (36.0-47.0); HEMOGLOBIN 14.1 g/dL (12.0-15.5); LYMPH # 0.7 x10^3/uL (1.0-4.8); LYMPH % 15 % (24-48); MEAN CORPUSCULAR HEMOGLOBIN 31 pg (25-35); MEAN CORPUSCULAR HGB CONC 35 g/dL (31-37); MEAN CORPUSCULAR VOLUME 90 fL (79-100); MONO # 0.5 x10^3/uL (0.0-1.1); MONO % 10 % (0-9); NEUT # 3.5 x10^3/uL (1.8-7.7); NEUT % 74 % (31-73); PLATELET COUNT 242 x10^3/uL (140-400); RED BLOOD COUNT 4.51 x10^6/uL (3.50-5.40); RED CELL DISTRIBUTION WIDTH 12.6 % (11.5-14.5); WHITE BLOOD COUNT 4.8 x10^3/uL (4.0-11.0)
[2020-10-25 08:12] LABS: CALCIUM 8.8 mg/dL (8.5-10.1); CREATININE 0.8 mg/dL (0.6-1.0); GFR 108.5
[2020-10-25 08:18] LABS: ALBUMIN 3.5 g/dL (3.4-5.0); ALBUMIN/GLOBULIN RATIO 0.9 (1.0-1.7); TOTAL BILIRUBIN 0.3 mg/dL (0.2-1.0); TOTAL PROTEIN 7.3 g/dL (6.4-8.2)
[2020-10-25 08:23] LABS: POTASSIUM 4.2 mmol/L (3.5-5.1)
[2020-10-25] MEDS ORDERED: ONDA4TAB12 PO (09:00)
[2020-10-25 09:20] VITALS: BP 117/76
[2020-10-25 09:26] LABS: PREG TEST PT QUAL NEGATIVE (NEG)
== END 2020-10-25 09:20 | disposition home or self-care (01) ==
LOC: ER 06:26
DX: U07.1 COVID-19 (principal); J12.82 Pneumonia due to coronavirus disease 2019; R11.10 Vomiting, unspecified; R19.7 Diarrhea, unspecified; J45.909 Unspecified asthma, uncomplicated; Z88.0 Allergy status to penicillin
CPT/HCPCS: 36415; 71045; 80053; 82550; 84703; 85025; 96361; 96374; 96375; 99284; J1885; J2765; J3490; J7030

== ENCOUNTER 2020-10-27 22:20 | Emergency (ER) | payer SELFPAY ==
[~2020-10-27 22:20] MED LIST changes: +ONDA4TAB12 PO
== END 2020-10-27 23:54 | disposition left against medical advice (07) ==
LOC: ER 22:20
DX: R50.9 Fever, unspecified (principal); R11.2 Nausea with vomiting, unspecified; R19.7 Diarrhea, unspecified; R43.9 Unspecified disturbances of smell and taste; Z53.21 Procedure and treatment not carried out due to patient leaving prior to being seen by health care provider